=== PATIENT | female | born 1990 | race Caucasian/White ===

== ENCOUNTER 2017-12-02 16:18 | Inpatient (IN) | payer OTHER ==
[2017-12-02] MEDS ORDERED: Sodium Chloride 0.9% 10 ML Syringe FLUSH PRN (16:42)
[2017-12-02] MEDS ORDERED: Lactated Ringers 1,000 ML IV ONE (16:42)
[2017-12-02] MEDS ORDERED: ceFAZolin 2 GM in Premix Bag 1 BAG IV ONE (17:04)
[2017-12-02] MEDS ORDERED: Citric Acid/Sodium Citrate Solution 30 ML Cup PO ONE (17:04)
[2017-12-02] MEDS ORDERED: Tranexamic Acid 1,000 MG in Sodium Chloride 0.9% 100 ML IV PRN ×2 (17:04→19:10)
[2017-12-02] MEDS ORDERED: Ondansetron 4 MG Tab.DIS PO PRN (17:04)
[2017-12-02] MEDS: Lactated Ringers 1,000 ML IV SCH (17:07)
[2017-12-02] MEDS ORDERED: Lactated Ringers 1,000 ML IV SCH ×3 (17:15→19:15)
[2017-12-02] MEDS ORDERED: Oxytocin/Normal Saline 30 UNIT/500 ML BAG IV SCH (17:45)
[2017-12-02] MEDS ORDERED: Acetaminophen 325 MG Tab PO PRN (19:10)
[2017-12-02] MEDS ORDERED: ePHEDrine 50 MG/ML SDV IVPUSH PRN (19:10)
[2017-12-02] MEDS ORDERED: Carboprost Tromethamine 250 MCG/1 ML Amp IM ONE (19:10)
[2017-12-02] MEDS ORDERED: Ondansetron 4 MG/2 ML SDV IV PRN (19:10)
[2017-12-02] MEDS ORDERED: Methylergonovine 0.2 MG/1 ML Amp IM PRN (19:10)
[2017-12-02] MEDS ORDERED: Misoprostol 400 MCG (4 X 100 MCG TAB) RECTAL PRN (19:10)
[2017-12-02] MEDS ORDERED: Naloxone 2 MG/2 ML Syringe IVPUSH PRN (19:10)
[2017-12-02] MEDS ORDERED: diphenhydrAMINE 50 MG/ML SDV IVPUSH PRN (19:10)
[2017-12-02] MEDS ORDERED: Acetaminophen/oxyCODONE 325-5 MG Tab PO PRN (19:10)
[2017-12-02] MEDS: Simethicone 80 MG Tab.Chew PO SCH (21:14)
--- NOTE | 2017-12-02 22:18 | OR ---
DATE: 12/02/2017 PREPROCEDURE DIAGNOSES: 1. A 36 and 6/7 weeks' intrauterine by last menstrual period confirmed with ultrasound. 2. 2, para 1-0-0-1. 3. Blood type A positive, rubella immune, group B strep negative. 4. History of mild preeclampsia. 5. Gestational hypertension in this , currently symptomatic with headache, possibly vomiting. 6. Maternal fever, likely due to viral gastroenteritis. Urinalysis, currently pending. 7. Pubic symphysis pain in . 8. History of prior section x1. POSTOPERATIVE DIAGNOSES: 1. A 36 and 6/7 weeks' intrauterine by last menstrual period confirmed with ultrasound. 2. 2, para 1-1-0-2. 3. Blood type A positive, rubella immune, group B strep negative. 4. History of mild preeclampsia. 5. Gestational hypertension in this , currently symptomatic with headache, possibly vomiting. 6. Maternal fever, likely due to viral gastroenteritis. Urinalysis, currently pending. 7. Pubic symphysis pain in . 8. section x2. 9. Status post vacuum-assisted repeat section. 10.Hematoma underneath the uterine peritoneal lining on the maternal left side. PROCEDURE PERFORMED: Repeat low transverse section with vacuum assistance. SURGEON: Roya Davila MD. SENIOR DYNAMICS CRM DEVELOPER: Ramiro Liu MD. SECOND MINERAL MIXER: Ailyn Enriquez MS-III BRIEF HISTORY: The patient is a 27-year-old with the above-listed history, who had been at Labor and Delivery in the clinic earlier today for evaluation, had a 10/10 biophysical profile, and negative preeclampsia labs, including urine protein/creatinine ratio of 0.2. She had reported not feeling well and having some nausea with an episode of emesis. After leaving the clinic, symptoms became worse and she was continuing to contract every 3 to 6 minutes, so she came back to the hospital for re-evaluation and was found to have tachycardia and a tracing was now tachycardic with a baseline in the 180s, moderate [id number] variability. No accelerations noted. Maternal temperature was also starting to increase and ultimately she was febrile prior to taking her to the operating room for . Working diagnoses at this time are undiagnosed urinary tract infection, but most likely viral gastroenteritis given the patient's vomiting, fever, and that her other daughter was at home sick earlier this week. CONSENT: Discussed with the patient and her the indications, risks, benefits, and alternatives of repeat low transverse section. I had discussed with her the plan for preoperative antibiotics, consent to blood transfusion in case one becomes necessary during the surgery as well as its inherent risks including contraction of blood borne disease, illness, or transfusion reaction. Risk of injury to any internal organs or adjacent structures including but not limited to, uterus, fallopian tubes, ovaries, bladder, intestines, or any other adjacent structures, even potential risks to the baby and potential for complications for mother or baby, who would require transfer to a higher level of care and even remote risk of . Her questions were answered. They agreed to proceed and consent forms were signed and in the chart. DESCRIPTION OF PROCEDURE: The patient was taken to the operating room and spinal anesthesia obtained. She was laid in dorsal supine position with leftward tilt and Reyes indwelling catheter was placed and a urine sample obtained. She was prepped and draped in the usual sterile fashion and prior Pfannenstiel scar was marked and sterile drapes applied. The skin tested and then skin incision made at 1811 hours and carried down to the underlying fascia using dissection with cautery and finger dissection. The fascia was incised in the midline and extended bilaterally using cautery and traction. Superior fascial edge was grasped with Shant's, tented up, and rectus muscles dissected off bluntly and with cautery. Inferior fascial edge tented up and rectus muscles dissected off bluntly. Peritoneal cavity was entered with blunt finger dissection and extended with traction. Star O retractor was then placed and a bladder flap created with Metzenbaum scissors and DeBakey. The uterus was then incised with low transverse uterine incision with a scalpel and the lower uterine segment was noted to be quite thin. There was no window present. The head was attempted to be brought out through the hysterotomy site, but noted to be quite large and in an effort to not cause increased trauma to the lower uterine segment inferiorly, vacuum assistance was called for and applied and baby delivered at 1818 hours. 's nose and mouth were bulb suctioned. Three-vessel umbilical cord was doubly clamped and cut. Baby was taken to the warmer for further evaluation. Cord blood sample then obtained and placenta delivered by gentle cord traction and concomitant uterine massage, briefly inspected and intact. Uterus was then cleared of all clots and debris and any trailing membranes that were present in the hysterotomy site was closed with a running lock stitch of 0 Vicryl in the usual fashion. There was a developing hematoma (4cm diameter) noted on the maternal left hand side. A second imbricating layer of 0 Vicryl was then placed and hemostasis achieved. The hematoma was reinspected, and was no longer expanding in size and quite stable. No additional bleeding areas. The Star retractor was carefully removed and the pericolic gutters were cleared of any clots and debris, hysterotomy site reinspected and irrigated and remained hemostatic. Again, the hematoma was not expanding in size. The rectus muscles were brought together at the base with a loose skbuog-av-yimma stitch. The fascia then closed with a running stitch of 0 looped PDS in the usual fashion. Subcutaneous layer then irrigated and cleared of any clots and debris and any small bleeders controlled with cautery. Skin was then closed with a running stitch of 4-0 Monocryl in a subcuticular fashion. Mastisol and Steri- Strips were then applied, and the patient tolerated the procedure well. END TIME: 1900 hours. URINE OUTPUT: 225 mL clear, no yellow. ESTIMATED BLOOD LOSS: 650 mL. IV FLUIDS: 1300 mL of crystalloids. FINDINGS: A thin lower uterine segment. Viable male infant, scores of 9 and 9, weight 8 pounds 5 ounces, 3795 g. COMPLICATIONS: None. DISPOSITION: Baby to go to the nursery. Mother to go to the PACU for recovery and then back down to her room. [facility] /[id number] MTDD
[2017-12-02] MEDS: ceFAZolin 1 GM in Premix Bag 1 BAG IV SCH (23:55)
[2017-12-03] MEDS ORDERED: ceFAZolin 1 GM in Premix Bag 1 BAG IV SCH (01:00)
[2017-12-03] MEDS: Ketorolac 30 MG/ML SDV IVPUSH SCH ×3 (01:09→13:35)
[2017-12-03] MEDS: Lactated Ringers 1,000 ML IV SCH (03:08)
[2017-12-03] MEDS: ceFAZolin 1 GM in Premix Bag 1 BAG IV SCH ×2 (08:28→16:59)
[2017-12-03] MEDS: Simethicone 80 MG Tab.Chew PO SCH ×4 (08:31→21:25)
[2017-12-03] MEDS ORDERED: Oxytocin/Normal Saline 30 UNIT/500 ML BAG IV ONE (10:11)
[2017-12-03] MEDS ORDERED: Ketorolac 30 MG/ML SDV IVPUSH ONE (10:15)
[2017-12-03] MEDS ORDERED: Ondansetron 4 MG/2 ML SDV IV ONE (10:15)
[2017-12-03] MEDS ORDERED: Morphine PF 1 MG/ML Amp ONE (10:15)
[2017-12-03] MEDS ORDERED: BUPIVACAINE HCL IJ ONE (10:16)
[2017-12-03] MEDS ORDERED: Lactated Ringers 1,000 ML IV ONE (10:16)
[2017-12-03] MEDS ORDERED: [UNRECOGNIZED DRUG - OTHER] IJ ONE (10:16)
--- NOTE | 2017-12-03 11:01 | PN ---
DATE: 12/03/2017 SUBJECTIVE: Day 1 postop from repeat section. The patient states she is feeling feverish, described as chills and sweating. She is tolerating a normal diet. Reyes catheter is still in place. She denies headache, blurry vision, shortness of breath, cough, or numbness or tingling in extremities. Denies pain in area of incision or uterine cramping. OBJECTIVE: Vital Signs: Temperature 97.8, pulse of 80, blood pressure 90/61, and respiratory rate 18 on room air. HEENT: Normocephalic. Mucosal membranes are moist. Heart: Regular without murmur. S1 and S2. Regular rate and rhythm. Lungs: Clear to auscultation bilaterally. No wheezing or rhonchi. Abdomen: Soft. Bowel sounds present. Uterus is firm at the umbilicus. Nontender to palpation. There is a white gauze dressing over the incision site on lower abdomen. Incision site is nontender. This is a new dressing. Yesterday, there was serosanguineous shadowing on the dressing. Neurologic: Alert and oriented. LABORATORY DATA: Hemoglobin 10.8, platelets 203, and white blood cell count 10.6. ASSESSMENT: 1. Postop day 1 of repeat section, complicated with maternal fever of 101.6 prior to section. 2. 36 and 6/7 weeks' intrauterine by last menstrual period, confirmed with ultrasound. 3. 2, para 1-1-0-2. 4. Blood type A positive, rubella immune, group B negative. 5. History of mild preeclampsia. 6. Gestational hypertension in this , symptomatic with headache, possibly vomiting. 7. Maternal fever, likely due to viral gastroenteritis. Urinalysis negative for infection. 8. section x2. 9. Status post vacuum-assisted repeat section. 10.Hematoma underneath the uterine peritoneal lining on maternal left side. PLAN: Continue routine post section cares. Continue to monitor vitals for signs and symptoms of sepsis. Reyes catheter to be removed later today. Followup will be with Dr. Grossman. [facility] /[id number] Patient seen and examined. Agree with note as scribed on my behalf by Ailyn Enriquez , MS 3. -shredder operator 5/26/18 0923 MTDD
[2017-12-03] MEDS: Acetaminophen/oxyCODONE 325-5 MG Tab PO PRN ×2 (16:59→21:26)
[2017-12-03] MEDS: Docusate Sodium 100 MG Cap PO PRN (21:25)
[2017-12-03] MEDS: Ibuprofen 800 MG Tab PO PRN (21:26)
[2017-12-04] MEDS: Acetaminophen/oxyCODONE 325-5 MG Tab PO PRN ×5 (01:16→21:09)
[2017-12-04] MEDS: Ibuprofen 800 MG Tab PO PRN ×3 (05:25→23:27)
--- NOTE | 2017-12-04 09:35 | PN ---
DATE: 12/04/2017 SUBJECTIVE: Postoperative day #2, status post repeat low transverse section. No concerns per nursing staff. The patient does note some lower abdominal cramping while . No other concerns per patient. She feels that her pain is, otherwise, well controlled on current medications. She denies fevers or chills; headaches or blurry vision; lightheadedness or dizziness; shortness of breath or chest pain; nausea or vomiting; sharp abdominal pains; or edema, erythema, or tenderness in any extremity. Reyes has been removed, and she denies any difficulty with urination. She is passing gas but has not had a bowel movement. Her lochia continues to improve, and she denies passage of large clots or foul smell. She is tolerating a general diet but upon further discussion she does have a decreased appetite. She is ambulating without difficulty. OBJECTIVE: Vital Signs: Temperature 98.5 Fahrenheit, heart rate 76, blood pressure 118/65, respiratory rate 18, and oxygen saturation 99% on room air. General: Alert, resting comfortably and in no acute distress. Heart: Regular rate and rhythm. S1 and S2. Lungs: Clear to auscultation bilaterally with normal respiratory effort. Abdomen: Soft, nondistended. Bowel sounds hypoactive. Uterus is firm and at the level of the umbilicus, without excessive tenderness by palpation. The incision is covered with Steri-Strips. These are dry and intact with minimal dried drainage, no active drainage. The incision itself is without signs of infection, and no induration noted by palpation. Extremities: No erythema, edema, or tenderness in any extremity. Neurologic: No obvious neurologic deficits. Skin: Warm, dry, and well perfused. LABORATORY DATA: White blood cells 10.6, hemoglobin 10.8, platelets 203. ASSESSMENT: 1. Postoperative day #2, status post repeat low transverse section, complicated with maternal fever of 101.6 Fahrenheit prior to surgery. 2. A 36 and 6/7 weeks' intrauterine gestation by last menstrual period, confirmed with ultrasound. 3. G2, P1-1-0-2. 4. Blood type A positive, rubella immune, group B streptococcus negative. 5. History of mild preeclampsia. 6. Gestational hypertension in this , symptomatic with headache, possibly vomiting. 7. Maternal fever, likely due to viral gastroenteritis. Urinalysis negative for infection. 8. History of section x2. 9. Status post vacuum-assisted repeat low transverse section. 10.Hematoma underneath uterine peritoneal lining on maternal left side. PLAN: Continue routine postoperative and cares. Please see orders for further details. The patient expressed understanding and is in agreement with the above plan, and all of her questions were answered. We anticipate discharge tomorrow, 12/05/2017. The history, physical, and assessment and plan are per Dr. Grossman; and this note is being scribed for Dr. Grossman. [facility] /[id number] Patient seen and examined. Agree with note as scribed on my behalf by Letha Rooney, MS3. -sewer pipe layer 12/04/17 1937. [place]
[2017-12-04] MEDS: Simethicone 80 MG Tab.Chew PO SCH ×4 (09:38→21:09)
[2017-12-04] MEDS: Docusate Sodium 100 MG Cap PO PRN (09:38)
[2017-12-05] MEDS: Acetaminophen/oxyCODONE 325-5 MG Tab PO PRN ×2 (02:25→06:55)
[2017-12-05] MEDS: Ibuprofen 800 MG Tab PO PRN (06:55)
[2017-12-05 13:23] VITALS: BP 122/67
[2017-12-05] MEDS: Simethicone 80 MG Tab.Chew PO SCH (13:25)
--- NOTE | 2017-12-07 07:29 | DISCH ---
ADMIT DIAGNOSES: 1. 36 and 6/7 weeks' intrauterine by last menstrual period, confirmed with ultrasound. 2. 2, para 1-0-0-1. 3. Blood type A positive, rubella immune, group B streptococcus negative. 4. History of preeclampsia. 5. Gestational hypertension in this , symptomatic with headache and possible vomiting. 6. Maternal fever, likely due to viral gastroenteritis. 7. Pubic symphysis pain in . 8. History of prior section x1. DISCHARGE DIAGNOSES: 1. 36 and 6/7 weeks' intrauterine by last menstrual period, confirmed with ultrasound, delivered via repeat low transverse section. 2. 2, para 1-1-0-2. 3. Blood type A positive, rubella immune, group B streptococcus negative. 4. History of preeclampsia. 5. Gestational hypertension in this , symptomatic with headache and possible vomiting. 6. Maternal fever, likely due to viral gastroenteritis. 7. Pubic symphysis pain in . 8. History of prior section x2. 9. Status post vacuum-assisted repeat section. 10.Hematoma underneath the uterine peritoneal lining on the maternal left side. BRIEF HISTORY: The patient is a 27-year-old, now G2, P1-1-0-2, who presented at 36 and 6/7 weeks' of her intrauterine at Labor and Delivery on the date of admission, and reported not feeling well and having some nausea with emesis. She had a 10/10 BPP, negative preeclampsia labs, but after leaving, her symptoms became worse, and she continued to contract every 3 to 6 minutes, so she returned to the hospital for evaluation. She was found to be tachycardic, and a heart tracing revealed tachycardia with a baseline in the 180s, moderate baur-re-ogtr variability and no accelerations. Maternal temperature was starting to increase, and ultimately, she was febrile prior to taking her to the operating room as it was decided to proceed to repeat section at that time. She had a successful repeat low transverse section with vacuum assistance yielding a male, scores 9 and 9, weighing 8 pounds 5 ounces, 3795 g. Routine and postoperative care was provided, and the patient tolerated the procedure well. HOSPITAL COURSE: The patient's hospital course has been complicated by general malaise, as well as fluctuating constipation and diarrhea with decreased appetite, suspect due to a viral gastroenteritis. The patient has remained afebrile with stable vital signs post delivery, and other than the complaints previously stated, the patient has been doing well. For postoperative days 1 and 2, please see progress notes. Postoperative day #3, the date of discharge, the patient reports several episodes of diarrhea beginning yesterday, but otherwise feels well. She denies fevers or chills, lightheadedness or dizziness, headaches or blurry vision, shortness of breath or chest pain, nausea or vomiting, sharp abdominal pains or erythema, edema, or tenderness in any extremity. She did drink 2 glasses of prune juice yesterday to help relieve constipation. She denies difficulty with urination and is passing gas. She notes that her lochia continues to improve and feels that her pain is well controlled on current medications. She is tolerating a general diet and is ambulating without difficulty. DISCHARGE CONDITION: Good. DISCHARGE PHYSICAL EXAMINATION: Vital Signs: Temperature 99.1 Fahrenheit, heart rate 92, respirations 16, and blood pressure 126/81. General: Alert, in no acute distress. HEENT: Mucous membranes are moist. Heart: Regular rate and rhythm, S1 and S2. Capillary refill less than 2 seconds. Lungs: Clear to auscultation bilaterally with normal respiratory effort. Abdomen: Soft, nontender and nondistended. Bowel sounds hyperactive. Uterus is firm and 2 fingerbreadths below the umbilicus without excessive tenderness by palpation. The incision is covered with Steri-Strips. These are dry and intact with minimal dry drainage and no active drainage. The incision itself is without signs of infection and no induration noted by palpation. Extremities: No erythema, edema, or tenderness in any extremity. Neurologic: No obvious neurologic deficits. Skin: Warm, dry, and well perfused. Normal turgor. LABORATORY DATA: Last drawn on postoperative day #2, white blood cells 10.0, hemoglobin 12.2, and platelets 251. Blood cultures x2 pending. DISPOSITION: Home, self-care. FOLLOWUP: Followup will be scheduled in the clinic around 2 weeks from now for an incision check, and the patient was instructed to schedule her 6 week's visit at that visit. DISCHARGE INSTRUCTIONS: 1. Diet as tolerated. 2. Activity, no lifting more than 20 pounds, no sit-ups, straining, or strenuous activities. It was discussed pelvic rest for the next 6 weeks with immediate return to fertility. Reasons to return or go to the emergency room were discussed with the patient in detail including but not limited to temperature greater than 100.4 Fahrenheit; red, hot, tender breasts; increasing vaginal bleeding, pain or foul smelling discharge; or increasing pain, drainage, or redness around the incision. DISCHARGE MEDICATIONS: 1. [id number] Tylenol or ibuprofen as needed for pain. 2. vitamins x6 weeks. 3. Percocet 5/325, 1 to 2 q.6 hours p.r.n. #30, no refills. It was discussed with the patient the use of this medication, adverse and unwanted affects as well as precautions with driving. It was discussed with the patient reasons to return or go to the emergency room in regard to her infant, and followup has been scheduled for the in 2 days from now for a well-child and weight check. The patient expressed understanding, is in agreement with the above treatment plan, and all of her questions were answered. The history, physical, assessment, and plan are per Dr. Grossman, and this note is being scribed for Dr. Grossman. [facility] /[id number] [place]
== END 2017-12-05 13:00 | disposition home or self-care (01) | DRG 766 ==
LOC: DL.OBCHECK 16:18 → DL.OB 17:03 → OBSVTOIN 18:18 → DL.OB 18:18
PROVIDERS: ADMIT Family Medicine; ATTEND Family Medicine
PROC: 10D00Z1 Extraction of Products of Conception, Low, Open Approach (ICD-10-PCS; principal; 2017-12-02)
PROC: 0UQ90ZZ Repair Uterus, Open Approach (ICD-10-PCS; 2017-12-02)
DX: O76 Abnormality in fetal heart rate and rhythm complicating labor and delivery (principal); O13.4 Gestational [pregnancy-induced] hypertension without significant proteinuria, complicating childbirth; Z3A.36 36 weeks gestation of pregnancy; Z37.0 Single live birth; O34.211 Maternal care for low transverse scar from previous cesarean delivery; O90.2 Hematoma of obstetric wound; O99.613 Diseases of the digestive system complicating pregnancy, third trimester; K92.89 Other specified diseases of the digestive system; A08.4 Viral intestinal infection, unspecified; Z87.59 Personal history of other complications of pregnancy, childbirth and the puerperium
CPT/HCPCS: 36415; 81001; 85025; 86850; 86900; 86901; 87040; A9270-GY; J0690; J1885; J2274; J2405; J2590; J7050; J7120